=== PATIENT | male | born 1980 | race Hispanic/Latino ===

== ENCOUNTER 2020-03-24 20:08 | Emergency (ER) | payer SELFPAY ==
[2020-03-24 20:42] VITALS: BP 146/80
--- NOTE | 2020-03-24 21:25 | XRay Report ---
LEFT HAND 3 VIEW(S) INDICATION / CLINICAL INFORMATION: FB IN PALM COMPARISON: None available. FINDINGS: BONES / JOINT(S): No acute fracture or subluxation. No significant arthritis. SOFT TISSUES: No significant abnormality. No radiopaque foreign object is identified. ADDITIONAL FINDINGS: None. Signer Name: Jose Guevara MD Signed: 03/24/2020 9:20 PM Workstation Name: [id number]
--- NOTE | 2020-03-24 21:43 | Emergency Department Report ---
- General Chief complaint: Skin/Abscess/Foreign Body Stated complaint: LT HAND INJURY SPLINTER Time Seen by Provider: 03/24/20 21:41 Source: patient Mode of arrival: Ambulatory Limitations: No Limitations - History of Present Illness Initial comments: Patient is a 39-year-old male that presents emergency room with complaints of a splinter in his left palm. Patient states that it happened at work this afternoon. Patient states he could not remove it. Patient states he then went to an urgent care and they attempted to remove and they were not able to remove it so they sent him to the emergency room for further treatment. Patient states the pain in his hand is a 10 out of 10. Patient states the pain is better with rest and worse with movement and palpation. Patient denies fever and chills. Patient denies any other physical complaints. Patient denies any other trauma. Patient denies recent travel. Patient denies recent international travel. Patient denies exposure to the novel coronavirus. Patient denies sick contacts. Patient denies fever and chills. Patient denies cough. Patient denies diarrhea. Patient denies coming in contact with anybody with symptoms of the novel coronavirus. complaint: foreign body -: Sudden Tetanus Up to Date: no Location: L hand Severity: severe Severity scale (0 -10): 10 Quality: stabbing Consistency: constant Improves with: rest Worsens with: palpation, movement Associated symptoms: denies other symptoms - Related Data Previous Rx's Medication Instructions Recorded Last Taken Type Sulfamethoxazole/Trimethoprim 1 each PO BID 10 Days #20 tablet 03/24/20 Unknown Rx [Bactrim DS TAB] Allergies Allergy/AdvReac Type Severity Reaction Status Date / Time No Known Allergies Allergy Unverified 03/24/20 20:37 Abscess Boil HPI - HPI Chief Complaint: Skin/Abscess/Foreign Body Stated Complaint: LT HAND INJURY SPLINTER Time Seen by Provider: 03/24/20 21:41 Home Medications: Previous Rx's Medication Instructions Recorded Last Taken Type Sulfamethoxazole/Trimethoprim 1 each PO BID 10 Days #20 tablet 03/24/20 Unknown Rx [Bactrim DS TAB] Allergies/Adverse Reactions: Allergies Allergy/AdvReac Type Severity Reaction Status Date / Time No Known Allergies Allergy Unverified 03/24/20 20:37 ED Review of Systems ROS: Stated complaint: LT HAND INJURY SPLINTER Other details as noted in HPI Constitutional: denies: chills, fever Eyes: denies: eye pain, eye discharge, vision change ENT: denies: ear pain, throat pain Respiratory: denies: cough, shortness of breath, wheezing Cardiovascular: denies: chest pain, palpitations Endocrine: no symptoms reported Gastrointestinal: denies: abdominal pain, nausea, diarrhea Genitourinary: denies: urgency, dysuria Musculoskeletal: denies: back pain, joint swelling, arthralgia Skin: denies: rash, lesions Neurological: denies: headache, weakness, paresthesias Psychiatric: denies: anxiety, depression Hematological/Lymphatic: denies: easy bleeding, easy bruising ED Past Medical Hx - Past Medical History Previous Medical History?: No - Surgical History Past Surgical History?: No - Family History Family history: no significant - Social History Smoking Status: Never Smoker Substance Use Type: None - Medications Home Medications: Home Medications Medication Instructions Recorded Confirmed Last Taken Type Sulfamethoxazole/Trimethoprim 1 each PO BID 10 Days #20 tablet 03/24/20 Unknown Rx [Bactrim DS TAB] ED Physical Exam - General Limitations: No Limitations General appearance: alert, in no apparent distress - Head Head exam: Present: atraumatic, normocephalic - Eye Eye exam: Present: normal appearance - ENT ENT exam: Present: mucous membranes moist - Neck Neck exam: Present: normal inspection - Respiratory Respiratory exam: Present: normal lung sounds bilaterally. Absent: respiratory distress - Cardiovascular Cardiovascular Exam: Present: regular rate, normal rhythm. Absent: systolic murmur, diastolic murmur, rubs, gallop - GI/Abdominal GI/Abdominal exam: Present: soft, normal bowel sounds - Rectal Rectal exam: Present: deferred - Extremities Exam Extremities exam: Present: normal inspection (Except for left hand has an open wound.), tenderness (To left hand palmar side.) - Back Exam Back exam: Present: normal inspection - Neurological Exam Neurological exam: Present: alert, oriented X3 - Psychiatric Psychiatric exam: Present: normal affect, normal mood - Skin Skin exam: Present: warm, dry, normal color, other (Puncture wound noted to the left hand palmar aspect in between the first and second digit.). Absent: rash ED Course Vital Signs 03/24/20 20:40 Temperature 99.1 F Pulse Rate 76 Respiratory 18 Rate Blood Pressure 146/80 O2 Sat by Pulse 100 Oximetry - Reevaluation(s) Reevaluation #1: Patient will be given tetanus. Patient agrees to have the splinter removed. 03/24/20 21:43 Reevaluation #2: I discussed x-ray results with patient. I discussed procedure. Patient signed consent form. Patient consented to the procedure. Patient will have a foreign body removal. 03/24/20 22:10 03/24/20 23:07 Reevaluation #3: Large wooden splinter removed during procedure. See procedure note. Patient tolerated procedure well. Patient will be given a tetanus vaccination prior to discharge. Patient agrees to have tetanus vaccination. I discussed all results and clinical findings with patient. I discussed plan of care with patient. Patient agrees with plan of care. Patient is stable for discharge. Patient will be discharged home. Patient given discharge instructions. Patient voiced understanding of discharge instructions. 03/24/20 23:04 - Procedure Description Procedures done: Foreign body removal from left palm in between the first and second digit procedure note: Site was cleaned and draped in a sterile fashion. Site was then anesthetized with 7 cc of lidocaine. Once adequate anesthesia was achieved, a 1 cm incision was made and the foreign body was removed. The splinter was wooden and 3 cm long. Site was then cleaned again and dressed in a sterile dressing. Tetanus was given to patient. Patient will be discharged on oral antibiotics. ED Medical Decision Making - Radiology Data Radiology results: report reviewed, image reviewed interpreted by me: Hand x-ray: No fracture, soft tissue normal, no foreign body, no osseous fi ndings, no acute findings LEFT HAND 3 VIEW(S) INDICATION / CLINICAL INFORMATION: FB IN PALM COMPARISON: None available. FINDINGS: BONES / JOINT(S): No acute fracture or subluxation. No significant arthritis. SOFT TISSUES: No significant abnormality. No radiopaque foreign object is identified. ADDITIONAL FINDINGS: None. - Medical Decision Making Patient is a 39-year-old male that presents emergency room with left hand pain. Patient states he has a splinter in his left palm. Patient had an x-ray done which showed no acute fracture and no foreign body. The patient then had a procedure done to remove the foreign body. The foreign body was removed successfully. Patient was dressed with a sterile dressing. Patient given discharge instructions. Patient given oral antibiotics. Patient also given tetanus while in ER. - Differential Diagnosis Foreign body, hand pain, Critical care attestation.: If time is entered above; I have spent that time in minutes in the direct care of this critically ill patient, excluding procedure time. ED Disposition Clinical Impression: Skin foreign body, Hand pain, left Disposition: DC-01 TO HOME OR SELFCARE Is pt being admited?: No Does the pt Need Aspirin: No Condition: Stable Instructions: Sliver Removal, Care After, Skin Foreign Body, VIS, Tetanus, Diphtheria, and Pertussis (Tdap) - [facility] (07/23/2019) Additional Instructions: Patient to follow-up with primary care in 2 to 3 days. Patient to follow-up with hand surgeon and orthopedist in 2 to 3 days. Patient to rest. Patient to increase water. Patient to avoid strenuous exercise or heavy lifting until cleared by hand surgeon and orthopedist.. Patient to take Tylenol or ibuprofen as needed for pain. Patient to take meds as directed. Patient to return to the ER if condition worsens, changes or new symptoms arise. Prescriptions: Sulfamethoxazole/Trimethoprim [Bactrim DS TAB] 1 each PO BID 10 Days #20 tablet Referrals: PRIMARY CARE, [Primary Care Provider] - 2-3 Days Time of Disposition: 23:10
[2020-03-24] MEDS ORDERED: LIDOCAINE (1%) 10 MG/1 ML VIAL 20 ML MDV INFILTRATI ONE (22:14)
[2020-03-24] MEDS ORDERED: TETANUS,DIPHTHERIA TOXOID ADULT 0.5 ML INJ IM ONE (22:45)
[2020-03-24] MEDS ORDERED: DIPHtheria,PERTUSSIS(ACELL),TETANUS VACCINE/PF 0.5 ML VIAL IM ONE (23:07)
== END 2020-03-24 23:18 | disposition home or self-care (01) ==
LOC: ED 20:08
DX: S60.552A Superficial foreign body of left hand, initial encounter (principal); M79.642 Pain in left hand; Z79.899 Other long term (current) drug therapy; X58.XXXA Exposure to other specified factors, initial encounter; Y93.89 Activity, other specified; Y92.89 Other specified places as the place of occurrence of the external cause; Y99.0 Civilian activity done for income or pay
CPT/HCPCS: 90471; 90714; 90715